=== PATIENT | female | born 1945 | race Caucasian/White ===

== ENCOUNTER → 2016-12-28 | Day surgery (SDC) | payer MEDICARE, OTHER ==
[~2016-12-28] MED LIST: (NONE)1 CA1 PO; ARMOUR THYROID120 MG PO; B-12500 MCG PO; CALCIUM500 M1 PO; CELEXA20 MG PO; CENTRUM SILVER PO; COD LIVER OIL1 EAC1 PO; DICLOFENAC SOD100 GM; DILTIAZEM ER120 M2 PO; ESOMEPRAZOLE MA20 MG PO; FENOFIBRATE145 M1 PO; FLECAINIDE ACE100 MG PO; LASIX20 MG PO; NEURONTIN100 MG PO; RESTASIS1 EACH OU; TRIAMCINOLONE AC1 GM EXT; VICODIN ES 7.51 EAC1 PO; VITAMIN D33000 UNIT PO; ZOLPIDEM TARTRAT5 M1 PO
--- NOTE | ~2016-12-28 | OR ---
Unit #: [id number] #: [id number] Patient: BENNY LAM [id number] [address] [address] [id number] MR#: [id number] NAME: BENNY LAM. ROOM: Date of Procedure: 12/28/2016 Admission Date: 12/28/2016 Surgeon: Mat Cohen M.D. : 1945 Attending Physician: Mat Cohen M.D. OPERATIVE REPORT PREOPERATIVE DIAGNOSES 1. Multilevel lumbar degenerative disk disease. 2. Chronic pain syndrome. 3. Phantom limb pain. POSTOPERATIVE DIAGNOSES 1. Multilevel lumbar degenerative disk disease. 2. Chronic pain syndrome. 3. Phantom limb pain. PROCEDURES PERFORMED 1. Implantation of intrathecal pain pump. 2. Implantation of Ascenda catheter. 3. Physician filling of pain pump. 4. Fluoroscopy. SURGICAL INDICATIONS AND RATIONALE Ms. Benny Rodríguez is a pleasant 71-year-old female, who has been having longstanding pain both in her low back and in the stump over below-knee amputation. The patient has tried various therapeutic options including physical therapy, home exercises, social worker palliative care, nonsteroidal anti-inflammatory medications, injections like epidurals and radiofrequency ablation; however, the patient's pain has been very limited as far as control of concern. The patient has used escalating doses of opioids with again limited relief of pain. The patient has undergone an epidural pain pump trial in which she got about 90% to 95% control of pain. The patient was very keen to move forward to have this pain pump implanted. The patient has undergone a cardiac evaluation, which did not show any abnormalities. The patient also had a psychological evaluation also which did not show any abnormalities. The patient also has undergone an education process regarding the risks, benefits, and alternatives available including the consent decree, which she discussed with me in great detail, and all her questions were answered to her satisfaction. I used a teach-back method to make sure that the patient understood my explanations. The patient also had an education process with the [employer] sales representative trainee, Lynn Rees, and all the patient's questions were answered to her satisfaction. DESCRIPTION OF PROCEDURE After obtaining full informed consent and after discussion with the patient of possible complications including infection, bleeding, paralysis, spinal headaches, and other perioperative complications were Unit #: [id number] #: [id number] Patient: BENNY LAM discussed with the patient and consent was obtained in front of nurse, Consuelo. The patient was then taken back to the operating room, where a time-out was done in accordance to the joint commission guidelines, where the patient's identity, procedure, and site of procedure were verified. The patient then was induced with general anesthesia by the anesthesiologist and positioned the patient in the prone position. The patient was then prepped and draped in the usual fashion. Then under fluoroscopic view, I was able to identify the interspace between L2 and L3. After the skin target sites were anesthetized, I placed an incision measuring 4 cm in length with a #10 blade. I used with the help of the Bovie to create a space in the underlying tissue and once that was done, I placed a 17-gauge Tuohy needle into the intrathecal space to access the CSF, which was achieved at first pass. Once the intrathecal space was accessed and after seen clear flow of CSF, I navigated an Ascenda catheter through the Tuohy needle to reach the upper border of T8, which was done under live fluoroscopic view, both in AP and lateral views. Once this was done, the Tuohy needle along with the catheter stylet were removed and I placed a special anchoring device to anchor this catheter to the interspinous ligament. This anchor was further secured by suturing it using 3-0 Prolene sutures to the interspinous ligament. Once this was done, this incision was copiously irrigated with irrigant. I then anesthetized the skin in the left side of her low back and made an incision measuring 6 cm in length. Once this was done, I created a pocket with the help of the Bovie to house the pain pump. Once the pocket was created, I copiously irrigated with irrigant and all bleeders were stopped. I then placed the antibiotic Tyrx pouch into the pocket. I then tunneled the catheter from the lumbar incision into the pocket and cut it to size. Then, I used a special connector to connect this catheter to a second segment of catheter, which was directly connected to the pump. This pump was filled with hydromorphone at a concentration of 5 mg/mL totalling 20 mL. I then aspirated the sideport using a 24-gauge Ocasio needle and I was able to get CSF. This signify that the pump catheter system was intact. This pump was then placed into the pocket and secured to the underlying tissue using 3-0 Prolene sutures via the 4 anchors. Once this was done, the two incisions were carefully inspected and closed using interrupted 3-0 Vicryl sutures in 2 layers. The skin was then approximated with arcelia. I placed Telfa and Tegaderm dressing and the patient was then brought back to the recovery room for neurological monitoring. PLAN OF CARE The patient had an uneventful recovery and was discharged home neurologically intact with plans to return to my office in 7 days to have her arcelia removed. I did discuss with her the course of the procedure and the risks and benefits and what to look for in the postoperative period such as sedation, difficulty breathing, or confusion. The patient's pump was started at a dose of 0.25 mg per day and the patient have the ability to access our patient intravenous therapy nurse to deliver 0.2 mg with maximum of 2 activations per day. The pump serial number is [id number]. The patient was then discharged home neurologically intact with plans to return to my office in 7 days for staple removal. Dictated by... [facility] [place] Unit #: [id number] #: [id number] Patient: BENNY LAM TD: 12/31/2016 04:45 JOB #: [id number] OPERATIVE REPORT Page 1 of 1 X Mat Cohen MD PROCEDURE OPERATIVE NOTE
--- NOTE | ~2016-12-28 | EKG ---
PATIENT: BENNY LAM UNIT #: [id number] Ventricular Rate: 70 BPM Atrial Rate: 70 BPM P-R Interval: 208 ms QRS Duration: 82 ms Q-T Interval: 414 ms QTC Calculation(Bezet): 447 ms P Worth: 42 degrees Calculated R Worth: 11 degrees Calculated T Worth: 57 degrees Diagnosis Line: Normal sinus rhythm Diagnosis Line: Normal ECG Diagnosis Line: No previous ECGs available Diagnosis Line: Confirmed by PAULY ZAIDI MD ([id number]) on Diagnosis Line: 12/28/2016 10:42:50 PM INTERPRETING MD: KYRIE
[2016-12-28 09:57] LABS: BASOPHIL% 0.5 % (0-2.5); EOSINOPHIL# 0.1 X10e3 (0-0.7); EOSINOPHIL% 1.1 % (0.0-7.0); HEMATOCRIT 38.9 % (35.0-45.0); HEMOGLOBIN 12.9 gm/dL (12.0-16.0); MEAN CORPUSCULAR HEMOGLOBIN 28.5 PG (28-34); MEAN CORPUSCULAR HGB CONC 33.2 g/dL (30-36); MEAN PLATELET VOLUME 7.4 FL (6.5-11.5); MONOCYTE# 0.8 X10e3 (0-1.0); MONOCYTE% 10.1 % (3.0-12.0); NEUTROPHIL# 4.9 X10e3 (1.5-7.1); NEUTROPHIL% 62.3 % (40-75); PLATELET COUNT 238 X10e3 (140-420); RED BLOOD COUNT 4.52 X10e (3.90-5.30); RED CELL DISTRIBUTION WIDTH 12.6 % (11.0-15.5); WHITE BLOOD COUNT 7.8 X10e3 (4.0-10.5)
[2016-12-28 10:01] LABS: DIFF IND NO
[2016-12-28 10:08] LABS: PARTIAL THROMBOPLASTIN TIME 24.4 SECONDS (23.5-31.3); PROTHROMBIN TIME (PATIENT) 10.9 SECONDS (10.0-11.7)
[2016-12-28 10:29] LABS: BUN/CREATININE RATIO 27.14; CALCIUM SERUM 9.6 mg/dL (8.4-10.2); CREATININE SERUM 0.7 mg/dL (0.6-1.4); POTASSIUM 3.9 mmol/L (3.5-5.1)
== END | disposition home or self-care (01) ==
LOC: CSUR 09:14
PROVIDERS: Specialist
DX: G89.4 Chronic pain syndrome (principal); M51.16 Intervertebral disc disorders with radiculopathy, lumbar region; E03.9 Hypothyroidism, unspecified; I10 Essential (primary) hypertension; J44.9 Chronic obstructive pulmonary disease, unspecified; M81.0 Age-related osteoporosis without current pathological fracture; E66.01 Morbid (severe) obesity due to excess calories; F32.9 Major depressive disorder, single episode, unspecified; M19.90 Unspecified osteoarthritis, unspecified site; K21.9 Gastro-esophageal reflux disease without esophagitis; Z68.42 Body mass index [BMI] 45.0-49.9, adult; Z79.891 Long term (current) use of opiate analgesic; Z79.899 Other long term (current) drug therapy; Z90.49 Acquired absence of other specified parts of digestive tract; Z90.710 Acquired absence of both cervix and uterus; Z98.84 Bariatric surgery status; Z90.10 Acquired absence of unspecified breast and nipple; Z96.652 Presence of left artificial knee joint; Z89.511 Acquired absence of right leg below knee; Z90.79 Acquired absence of other genital organ(s); Z98.890 Other specified postprocedural states
CPT/HCPCS: 76001; 80048; 85025; 85610; 85730; 93005; C1772; J0330; J0690; J1170; J2250; J2405; J3010; J3370